=== PATIENT | female | born 1940 | race Caucasian/White ===

== ENCOUNTER 2017-02-27 04:47 | Inpatient (IN) | payer BC ==
[~2017-02-27] VITALS: Ht 162.6 cm; Wt 78.2 kg
[2017-02-27] MEDS ORDERED: SODIUM CHLORIDE 0.9% 1,000 ML IV ONE ×2 (05:01→06:41)
[2017-02-27 06:35] LABS: Urine Bacteria NONE SEEN /hpf (None Seen); Urine Blood Negative /uL (Negative); Urine Hyaline Cast FEW /lpf (0 - 2); Urine Mucus FEW (None Seen); Urine Specific Gravity 1.017 (1.001-1.035); Urine WBC 1 /hpf (0 - 5)
[2017-02-27] MEDS ORDERED: PROMETHAZINE HCL 25 MG/ML 1ML IV PRN ×2 (06:45→14:15)
[2017-02-27] MEDS ORDERED: MORPHINE SULFATE 10 MG/ML INJ 1ML SDV IV ONE (06:45)
[2017-02-27 06:48] LABS: Alcohol, Urine < 3.0 mg/dL (0-5); Amphetamine Screen, Urine NEGATIVE (NEGATIVE); Barbiturate Scree,Urine NEGATIVE (NEGATIVE); Benzodiazephine Screen, Urine NEGATIVE (NEGATIVE); Cannabinoid Screen, Urine POSITIVE (NEGATIVE); Cocaine Screen, Urine NEGATIVE (NEGATIVE); Opiate Scree,Urine POSITIVE (NEGATIVE); Phencyclidine Screen, Urine NEGATIVE (NEGATIVE)
[2017-02-27 10:13] LABS: Basophils # (auto) 0 uL; Basophils % (auto) 0.5 % (0.0-2.0); Eosinophils # (auto) 0 uL; Eosinophils % (auto) 0.4 % (0.0-7.0); Hematocrit 41.8 % (36.0-46.0); Hemoglobin 14.2 g/dL (12.2-16.2); Lymphocytes # (auto) 1.3 uL; Lymphocytes % (auto) 12.7 % (10.0-50.0); Mean Corpuscular Hemoglobin 31.8 pg (28.0-32.0); Mean Corpuscular Hgb Conc. 33.8 g/dL (32.0-36.0); Monocytes # (auto) 0.7 uL; Monocytes % (auto) 6.5 % (0.0-12.0); Neutrophils % (auto) 79.9 % (37.0-80.0); Nucleated Red Blood Cells % 0.1 %; Platelet Count (auto) 347 10^3/uL (140-450); Red Blood Cells 4.45 10^6/uL (4.0-5.20); Red Cell Distribution Width 13.7 % (11.8-14.3)
[2017-02-27 10:27] LABS: INR 0.95 (0.9-1.15); Partial Thromboplastin Time 26.1 sec (22.64-33.71); Prothrombin Time 10.4 sec (9.37-12.3)
[2017-02-27 10:37] LABS: Alanine Aminotransferase 42 U/L (13-56); Alkaline Phosphatase 75 U/L (45-117); Anion Gap 7 (5-15); Aspartate Aminotransferase 19 U/L (15-37); BUN/Creatinine Ratio 14.1; Bilirubin, Total 0.7 mg/dL (0.2-1.0); Blood Alcohol < 3.0 mg/dL (0-5); Blood Urea Nitrogen 10 mg/dL (7-18); Calcium 8.8 mg/dL (8.5-10.1); Carbon Dioxide 26 mmol/L (21-32); Chloride 103 mmol/L (98-107); GFR African American 102 mL/min; GFR Non-African American 85 mL/min; Glucose 100 mg/dL (74-106); Magnesium 2.2 mg/dL (1.6-2.6); Potassium 3.3 mmol/L (3.5-5.1); Sodium 136 mmol/L (136-145); Total Protein 6.9 g/dL (6.4-8.2)
[2017-02-27] MEDS ORDERED: LACTULOSE 20Gm/30ML SOLN PO PRN (14:15)
[2017-02-27] MEDS ORDERED: ACETAMINOPHEN 500 MG TAB PO PRN (14:15)
[2017-02-27] MEDS ORDERED: NITROGLYCERIN 0.4 MG SL TAB SL PRN (14:15)
[2017-02-27] MEDS ORDERED: TEMAZEPAM 15 MG CAP PO PRN (14:15)
[2017-02-27] MEDS ORDERED: MORPHINE SULFATE 10 MG/ML INJ 1ML SDV IV PRN (14:15)
[2017-02-27] MEDS ORDERED: LORazepam 0.5 MG TAB PO PRN (14:15)
[2017-02-27] MEDS ORDERED: IOHEXOL 350 MG/ML 100ML IJ ONE (14:17)
[2017-02-27] MEDS ORDERED: ENOXAPARIN SOD 40 MG/0.4 ML SYRINGE SC ONE (14:30)
[2017-02-27] MEDS ORDERED: ASPirin 81 mg TAB PO ONE (14:30)
[2017-02-27] MEDS ORDERED: PANTOPRAZOLE 40 MG TAB PO ONE (14:30)
[2017-02-27] MEDS: SOD CHL 0.9%/ KCL 20MEQ 1,000 ML IV SCH ×2 (16:38→17:38)
[2017-02-27 17:42] VITALS: BP 164/96
[2017-02-27 18:00] VITALS: BP 164/96
[2017-02-27 21:50] VITALS: BP 154/81
[2017-02-27] MEDS: ATORVASTATIN 20 MG TAB PO SCH (21:57)
[2017-02-27] MEDS: MORPHINE SULFATE 10 MG/ML INJ 1ML SDV IV PRN (21:57)
[2017-02-28] VITALS (7 sets, daily range): BP systolic 136–158; BP diastolic 78–98
[2017-02-28] MEDS ORDERED: cefTRIAXone 1GM/50ML D5W 50 ML IV SCH (09:00)
[2017-02-28] MEDS: PANTOPRAZOLE 40 MG TAB PO SCH (09:40)
[2017-02-28] MEDS: ENOXAPARIN SOD 40 MG/0.4 ML SYRINGE SC SCH (09:40)
[2017-02-28] MEDS ORDERED: ASPirin 81 mg TAB PO SCH (10:00)
[2017-02-28] MEDS ORDERED: AZITHROMYCIN 500MG/ 250ML 250 ML IV SCH (10:00)
[2017-02-28] MEDS ORDERED: ENOXAPARIN SOD 40 MG/0.4 ML SYRINGE SC SCH (10:00)
[2017-02-28] MEDS ORDERED: SOD CHL 0.9%/ KCL 20MEQ 1,000 ML IV SCH (15:30)
[2017-02-28] MEDS ORDERED: HALOPERIDOL LACTATE 5 MG/ML INJ VIAL IM PRN (18:45)
[2017-02-28] MEDS ORDERED: LORazepam 2MG/ML-1ML VIAL IV PRN (18:45)
[2017-02-28] MEDS: HYDROcodone-ACET 5/325MG TAB PO PRN (20:36)
[2017-02-28] MEDS: ATORVASTATIN 20 MG TAB PO SCH (21:04)
[2017-03-01 05:00] VITALS: BP 143/79
[2017-03-01] MEDS ORDERED: PRED1PAK8 PO (07:49)
[2017-03-01] MEDS ORDERED: FELO5TAB6 PO (07:49)
[2017-03-01] MEDS: ASPirin-EC 81 mg tab PO SCH (10:51)
[2017-03-01] MEDS: ENOXAPARIN SOD 40 MG/0.4 ML SYRINGE SC SCH (10:52)
[2017-03-01] MEDS: PANTOPRAZOLE 40 MG TAB PO SCH (10:52)
[2017-03-01] MEDS ORDERED: CYANOCOBALAMIN (B-12) 1000 MCG/1 ML VIAL IM ONE (13:15)
[2017-03-01] MEDS ORDERED: LORazepam 0.5 MG TAB PO PRN (14:30)
[2017-03-01 14:31] LABS: Folate (Folic Acid) 10.11 ng/mL (5.38-24)
[2017-03-01] MEDS: CYANOCOBALAMIN 500 MCG TAB PO SCH (14:45)
[2017-03-01 15:24] LABS: Basophils # (auto) 0.1 uL; Basophils % (auto) 0.8 % (0.0-2.0); Eosinophils # (auto) 0.1 uL; Eosinophils % (auto) 1.1 % (0.0-7.0); Hematocrit 38.7 % (36.0-46.0); Hemoglobin 13.1 g/dL (12.2-16.2); Lymphocytes # (auto) 1.3 uL; Lymphocytes % (auto) 13.4 % (10.0-50.0); Mean Corpuscular Hemoglobin 32.2 pg (28.0-32.0); Mean Corpuscular Hgb Conc. 33.8 g/dL (32.0-36.0); Mean Corpuscular Volume 95.2 fL (80.0-100.0); Monocytes # (auto) 0.6 uL; Monocytes % (auto) 6.5 % (0.0-12.0); Neutrophils # (auto) 7.5 uL; Neutrophils % (auto) 78.2 % (37.0-80.0); Platelet Count (auto) 322 10^3/uL (140-450); Red Blood Cells 4.06 10^6/uL (4.0-5.20); White Blood Cell 9.6 10^3/uL (4.4-10.8)
[2017-03-01 15:26] LABS: BUN/Creatinine Ratio 11.1; Calcium 8.8 mg/dL (8.5-10.1); Magnesium 2.2 mg/dL (1.6-2.6); Potassium 3.9 mmol/L (3.5-5.1)
[2017-03-01 15:41] LABS: INR 0.95 (0.9-1.15); Partial Thromboplastin Time 32.7 sec (22.64-33.71); Prothrombin Time 10.3 sec (9.37-12.3)
[2017-03-01 17:26] LABS: Folate (Folic Acid) 10.78 ng/mL (5.38-24)
[2017-03-01] MEDS ORDERED: MULTIPLE VITAMINS W/ MINERALS TAB PO ONE (18:00)
[2017-03-01] MEDS: MORPHINE SULFATE 10 MG/ML INJ 1ML SDV IV PRN (18:47)
[2017-03-01 20:00] VITALS: BP 129/73
[2017-03-01 22:00] VITALS: BP 129/73
[2017-03-01] MEDS: ATORVASTATIN 20 MG TAB PO SCH (22:36)
[2017-03-01] MEDS: ASCORBIC ACID 500 MG TAB PO SCH (22:36)
[2017-03-01] MEDS: HYDROcodone-ACET 5/325MG TAB PO PRN (22:36)
[2017-03-02 05:00] VITALS: BP 133/78
[2017-03-02] MEDS ORDERED: MULTIPLE VITAMINS W/ MINERALS TAB PO SCH (10:00)
[2017-03-02] MEDS: ASPirin-EC 81 mg tab PO SCH (10:33)
[2017-03-02] MEDS: PANTOPRAZOLE 40 MG TAB PO SCH (10:33)
[2017-03-02] MEDS: CYANOCOBALAMIN 500 MCG TAB PO SCH (10:34)
[2017-03-02] MEDS: ASCORBIC ACID 500 MG TAB PO SCH (10:34)
[2017-03-02] MEDS: ENOXAPARIN SOD 40 MG/0.4 ML SYRINGE SC SCH (10:34)
[2017-03-02] MEDS ORDERED: CYAN500T2 PO (12:18)
[2017-03-02] MEDS ORDERED: ATOR20TA50 PO (12:18)
[2017-03-02] MEDS ORDERED: ASP81EC PO (12:18)
== END 2017-03-02 16:40 | disposition hospice, home (50) | DRG 92 ==
LOC: ER 04:47 → EDBD 04:47 → TELE 04:48 → TELE-CENTR 17:24
PROVIDERS: ADMIT Internal Medicine; ATTEND Hospitalist
DX: G92 Toxic encephalopathy (principal); E44.0 Moderate protein-calorie malnutrition; E83.51 Hypocalcemia; M48.54XA Collapsed vertebra, not elsewhere classified, thoracic region, initial encounter for fracture; F03.90 Unspecified dementia, unspecified severity, without behavioral disturbance, psychotic disturbance, mood disturbance, and anxiety; F19.20 Other psychoactive substance dependence, uncomplicated; E53.8 Deficiency of other specified B group vitamins; K57.30 Diverticulosis of large intestine without perforation or abscess without bleeding; N81.4 Uterovaginal prolapse, unspecified; K76.0 Fatty (change of) liver, not elsewhere classified; Z79.82 Long term (current) use of aspirin; Z79.899 Other long term (current) drug therapy; Z86.73 Personal history of transient ischemic attack (TIA), and cerebral infarction without residual deficits; Z88.0 Allergy status to penicillin; Z91.030 Bee allergy status; Z91.011 Allergy to milk products; Z68.29 Body mass index [BMI] 29.0-29.9, adult
CPT/HCPCS: 36415; 51702; 70450; 71010; 71275; 74176; 80048; 80053; 80307; 80320; 81001; 82550; 82607; 82746; 83605; 83735; 84443; 84484; 85025; 85379; 85610; 85652; 85730; 87040; 92610; 93005; 93306; 93886; 94761; 95819; 96361; 96374; 96375; J0696

== ENCOUNTER 2017-03-30 21:07 | Inpatient (IN) | payer BC ==
[~2017-03-30] VITALS: Ht 162.6 cm; Wt 60.5 kg
[~2017-03-30 21:07] MED LIST: ASP81EC PO; ATOR20TA50 PO; CYAN500T2 PO
[2017-03-30 21:48] LABS: Urine Blood 1+ /uL (Negative); Urine Color Yellow (Yellow); Urine Glucose Normal (Normal); Urine Hyaline Cast MOD /lpf (0 - 2); Urine Ketone Negative (Negative); Urine Mucus MODERATE (None Seen); Urine Nitrite Negative (Negative); Urine RBC 12 /hpf (0 - 4); Urine Squamous Epithelial Cell FEW /hpf (<5)
[2017-03-30 21:49] LABS: Urine Bilirubin POSITIVE (Negative)
[2017-03-30 22:50] LABS: Basophils # (auto) 0.1 uL; Basophils % (auto) 0.6 % (0.0-2.0); Eosinophils # (auto) 0 uL; Eosinophils % (auto) 0.2 % (0.0-7.0); Hematocrit 52.9 % (36.0-46.0); Hemoglobin 17.1 g/dL (12.2-16.2); Lymphocytes # (auto) 1.3 uL; Mean Corpuscular Hemoglobin 31.9 pg (28.0-32.0); Mean Corpuscular Hgb Conc. 32.4 g/dL (32.0-36.0); Mean Corpuscular Volume 98.6 fL (80.0-100.0); Mean Platelet Volume 11.2 fL (6.9-10.8); Monocytes % (auto) 7.9 % (0.0-12.0); Neutrophils # (auto) 10.4 uL; Neutrophils % (auto) 81.3 % (37.0-80.0); Nucleated Red Blood Cells % 0.1 %; Platelet Count (auto) 305 10^3/uL (140-450); Red Cell Distribution Width 14.1 % (11.8-14.3); White Blood Cell 12.7 10^3/uL (4.4-10.8)
[2017-03-30 22:57] LABS: Salicylate < 1.7 mg/dL (2.8-20.0)
[2017-03-30] MEDS ORDERED: SODIUM CHLORIDE 0.9% 1,000 ML IV ONE (23:00)
[2017-03-30 23:08] LABS: INR 1.12 (0.9-1.15); Partial Thromboplastin Time 26.4 sec (22.64-33.71); Prothrombin Time 12.2 sec (9.37-12.3)
[2017-03-30 23:48] LABS: Acetaminophen < 2.0 ug/mL (10-30); Anion Gap 14 (5-15); Carbon Dioxide 19 mmol/L (21-32); Chloride 124 mmol/L (98-107); Lactic Acid w/Reflex 2.5 mmol/L (0.4-2.0); REFLEX LACTIC ACID YES OR NO YES; Sodium 157 mmol/L (136-145)
[2017-03-30 23:49] LABS: Albumin 3.2 g/dL (3.4-5.0); Alkaline Phosphatase 111 U/L (45-117); Aspartate Aminotransferase 72 U/L (15-37); Bilirubin, Total 0.9 mg/dL (0.2-1.0); GFR African American 28 mL/min; GFR Non-African American 23 mL/min; Glucose 154 mg/dL (74-106); Total Protein 7.5 g/dL (6.4-8.2)
[2017-03-31 00:02] LABS: BUN/Creatinine Ratio 40.4; Blood Urea Nitrogen 88 mg/dL (7-18)
[2017-03-31 02:04] LABS: Allen Test Yes; Base Excess -9.9 mmol/L (-2.0-2.0); Blood 02Sat 92.9 % (96-100); Blood COHb 0.1 % (0.5-1.5); Blood MetHb 0.3 % (0.0-1.5); HCO3 13.7 mmol/L (22-26.0); HHb 7.1 % (0.0-5.0); MODE ROOM AIR; O2Hb 92.5 % (94.0-97.0); PCO2 25.3 mmHg (35.0-45.0); PCO2(T) 25.3 mmHg (35.0-45.0); PO2 71.7 mmHg (80.0-100.0); PO2(T) 71.7 mmHg (80.0-100.0); Sample Type Arterial; pH 7.352 (7.350-7.450)
[2017-03-31] MEDS ORDERED: SODIUM CHLORIDE 0.9% 1,000 ML IV ONE (03:00)
[2017-03-31] MEDS ORDERED: MORPHINE SULF INJ 2 MG/ML SYRINGE 1ML IV PRN (06:30)
[2017-03-31] MEDS ORDERED: NITROGLYCERIN 0.4 MG SL TAB SL PRN (06:30)
[2017-03-31] MEDS ORDERED: AZITHROMYCIN 500MG/ 250ML 250 ML IV ONE (06:30)
[2017-03-31] MEDS ORDERED: ONDANSETRON HCL 4 MG/2 ML VIAL IV PRN (06:45)
[2017-03-31] MEDS ORDERED: DOXYCYCLINE HYC 100MG/250ML 250 ML IV SCH ×3 (07:15→11:00)
[2017-03-31 07:18] LABS: Basophils # (auto) 0 uL; Basophils % (auto) 0.4 % (0.0-2.0); Eosinophils # (auto) 0.1 uL; Eosinophils % (auto) 0.8 % (0.0-7.0); Hematocrit 45.8 % (36.0-46.0); Hemoglobin 14.6 g/dL (12.2-16.2); Lymphocytes # (auto) 1.2 uL; Lymphocytes % (auto) 10.2 % (10.0-50.0); Mean Corpuscular Hemoglobin 31.6 pg (28.0-32.0); Mean Corpuscular Hgb Conc. 31.9 g/dL (32.0-36.0); Mean Corpuscular Volume 99.2 fL (80.0-100.0); Mean Platelet Volume 10.7 fL (6.9-10.8); Monocytes # (auto) 0.8 uL; Monocytes % (auto) 6.5 % (0.0-12.0); Neutrophils # (auto) 9.6 uL; Neutrophils % (auto) 82.1 % (37.0-80.0); Nucleated Red Blood Cells % 0.1 %; Platelet Count (auto) 231 10^3/uL (140-450); Red Cell Distribution Width 14.2 % (11.8-14.3); White Blood Cell 11.6 10^3/uL (4.4-10.8)
[2017-03-31 07:38] LABS: BUN/Creatinine Ratio 56.7; Calcium 8.5 mg/dL (8.5-10.1); Potassium 3.8 mmol/L (3.5-5.1)
[2017-03-31] MEDS ORDERED: cefTRIAXone 1GM/10ml IVPUSH 10 ML IV SCH (10:00)
[2017-03-31] MEDS: D5W 5% 1,000 ML IV SCH ×2 (11:15→18:23)
[2017-03-31] MEDS ORDERED: LEVOFLOXACIN 250MG 50 ML IV SCH (11:30)
[2017-03-31 13:00] VITALS: BP 148/88
[2017-03-31] MEDS: LEVOFLOXACIN 250MG 50 ML IV SCH (14:41)
[2017-03-31 15:27] LABS: BUN/Creatinine Ratio 47.4; Calcium 8.8 mg/dL (8.5-10.1); Potassium 3.3 mmol/L (3.5-5.1)
[2017-03-31 16:00] VITALS: BP 129/82
[2017-03-31] MEDS ORDERED: POTASSIUM CHLORIDE 40 MEQ, LIDOCAINE 1% (LOCAL ANESTH.) 4 ML in SODIUM CHL 0.9% 250 ML IV ONE (17:15)
[2017-03-31 19:31] LABS: Calcium 8.7 mg/dL (8.5-10.1); Potassium 3.8 mmol/L (3.5-5.1)
[2017-03-31 19:51] VITALS: BP 110/72
[2017-03-31 22:43] LABS: BUN/Creatinine Ratio 45.8; Calcium 8.6 mg/dL (8.5-10.1); Potassium 4.4 mmol/L (3.5-5.1)
[2017-04-01] VITALS: BP 127/75
[2017-04-01 03:46] LABS: Potassium 3.6 mmol/L (3.5-5.1)
[2017-04-01 03:48] LABS: BUN/Creatinine Ratio 45.7
[2017-04-01 04:00] VITALS: BP 121/78
[2017-04-01 05:36] LABS: Basophils # (auto) 0 uL; Basophils % (auto) 0.3 % (0.0-2.0); Eosinophils # (auto) 0.6 uL; Eosinophils % (auto) 5.2 % (0.0-7.0); Hemoglobin 13.4 g/dL (12.2-16.2); Lymphocytes # (auto) 1.2 uL; Lymphocytes % (auto) 11.2 % (10.0-50.0); Mean Corpuscular Hemoglobin 31.7 pg (28.0-32.0); Mean Corpuscular Hgb Conc. 32.7 g/dL (32.0-36.0); Mean Corpuscular Volume 97.2 fL (80.0-100.0); Mean Platelet Volume 10.1 fL (6.9-10.8); Monocytes # (auto) 0.7 uL; Monocytes % (auto) 6.7 % (0.0-12.0); Neutrophils # (auto) 8.5 uL; Neutrophils % (auto) 76.6 % (37.0-80.0); Platelet Count (auto) 145 10^3/uL (140-450); Red Cell Distribution Width 13.7 % (11.8-14.3); White Blood Cell 11.1 10^3/uL (4.4-10.8)
[2017-04-01 06:04] LABS: BUN/Creatinine Ratio 46.2; Calcium 8.7 mg/dL (8.5-10.1); Potassium 3.4 mmol/L (3.5-5.1)
[2017-04-01 08:00] VITALS: BP 139/76
[2017-04-01] MEDS: LEVOFLOXACIN 250MG 50 ML IV SCH (09:48)
[2017-04-01] MEDS: D5W/SOD CHL 0.45%/KCL 20MEQ 1,000 ML IV SCH ×2 (09:57→22:30)
[2017-04-01] MEDS ORDERED: FLUCONAZOLE 100 MG TAB PO SCH (10:00)
[2017-04-01 10:43] LABS: B-Type Natriuretic Peptide 59.81 pg/mL (0-100); Temperature: 23.3 C (20.0-25.0)
[2017-04-01 11:29] LABS: BUN/Creatinine Ratio 40.7; Calcium 8.8 mg/dL (8.5-10.1); Potassium 3.3 mmol/L (3.5-5.1)
[2017-04-01 11:50] VITALS: BP 129/86
[2017-04-01] MEDS: ENOXAPARIN SOD 60 MG/0.6 ML SYRINGE SC SCH ×2 (14:57→22:29)
[2017-04-01 15:52] VITALS: BP 110/65
[2017-04-01] MEDS: FLUCONAZOLE 100MG/50ML 50 ML IV SCH (18:00)
[2017-04-01 20:00] VITALS: BP 116/68
[2017-04-02] VITALS: BP 113/71
[2017-04-02 05:19] LABS: Basophils # (auto) 0 uL; Basophils % (auto) 0.3 % (0.0-2.0); Eosinophils # (auto) 0.6 uL; Eosinophils % (auto) 6.2 % (0.0-7.0); Hematocrit 40.6 % (36.0-46.0); Hemoglobin 13.1 g/dL (12.2-16.2); Lymphocytes # (auto) 1.3 uL; Lymphocytes % (auto) 13.4 % (10.0-50.0); Mean Corpuscular Hemoglobin 31.9 pg (28.0-32.0); Mean Corpuscular Hgb Conc. 32.3 g/dL (32.0-36.0); Mean Corpuscular Volume 98.8 fL (80.0-100.0); Mean Platelet Volume 10.7 fL (6.9-10.8); Monocytes # (auto) 0.8 uL; Neutrophils # (auto) 7.1 uL; Neutrophils % (auto) 72.1 % (37.0-80.0); Nucleated Red Blood Cells % 0.1 %; Platelet Count (auto) 127 10^3/uL (140-450); Red Cell Distribution Width 13.7 % (11.8-14.3); White Blood Cell 9.9 10^3/uL (4.4-10.8)
[2017-04-02 05:49] LABS: Albumin 2.2 g/dL (3.4-5.0); BUN/Creatinine Ratio 28.2; Bilirubin, Total 0.5 mg/dL (0.2-1.0); Calcium 8.5 mg/dL (8.5-10.1); Magnesium 2.2 mg/dL (1.6-2.6); Phosphorus 2.4 mg/dL (2.5-4.90); Total Protein 5.4 g/dL (6.4-8.2)
[2017-04-02 08:00] VITALS: BP 141/83
[2017-04-02] MEDS: LEVOFLOXACIN 250MG 50 ML IV SCH (10:29)
[2017-04-02] MEDS: ENOXAPARIN SOD 60 MG/0.6 ML SYRINGE SC SCH ×2 (10:29→21:48)
[2017-04-02] MEDS: FLUCONAZOLE 100MG/50ML 50 ML IV SCH (11:30)
[2017-04-02] MEDS ORDERED: POTASSIUM PHOSPHATE 22 MEQ in SODIUM CHL 0.9% 100 ML IV ONE (12:30)
[2017-04-02] MEDS: POTASSIUM CHLORIDE IV SCH (14:36)
[2017-04-02] MEDS: D5W IV SCH (14:36)
[2017-04-02] MEDS: SODIUM BICARBONATE IV SCH (14:36)
[2017-04-02 14:57] VITALS: BP 120/77
[2017-04-02] MEDS ORDERED: CYANOCOBALAMIN (B-12) 1000 MCG/1 ML VIAL IM ONE (16:00)
[2017-04-02] MEDS ORDERED: HALOPERIDOL LACTATE 5 MG/ML INJ VIAL IM PRN (16:00)
[2017-04-02 16:30] VITALS: BP 128/76
[2017-04-02 16:45] VITALS: BP 128/76
[2017-04-02 20:00] VITALS: BP 126/95
[2017-04-03 00:07] VITALS: BP 136/78
[2017-04-03] MEDS: POTASSIUM CHLORIDE IV SCH ×2 (01:45→14:17)
[2017-04-03] MEDS: D5W IV SCH ×2 (01:45→14:17)
[2017-04-03] MEDS: SODIUM BICARBONATE IV SCH ×2 (01:45→14:17)
[2017-04-03 04:00] VITALS: BP 134/87
[2017-04-03 08:00] VITALS: BP 145/88
[2017-04-03 09:23] LABS: Hematocrit 40.4 % (36.0-46.0); Hemoglobin 13.5 g/dL (12.2-16.2); Mean Corpuscular Hemoglobin 31.6 pg (28.0-32.0); Mean Corpuscular Hgb Conc. 33.5 g/dL (32.0-36.0); Mean Corpuscular Volume 94.3 fL (80.0-100.0); Mean Platelet Volume 11.1 fL (6.9-10.8); Platelet Count (auto) 200 10^3/uL (140-450); Red Cell Distribution Width 13.2 % (11.8-14.3); White Blood Cell 12.3 10^3/uL (4.4-10.8)
[2017-04-03 09:29] LABS: Metamyelocytes % 0; Myelocytes % 0; Promyelocytes % 0; Reactive Lymphocytes 0
[2017-04-03 09:43] LABS: Platelet Estimate Adequate; RBC Morphology Normal
[2017-04-03 09:50] LABS: Albumin 2.5 g/dL (3.4-5.0); BUN/Creatinine Ratio 16.7; Bilirubin, Total 0.7 mg/dL (0.2-1.0); Calcium 8.6 mg/dL (8.5-10.1); Magnesium 1.9 mg/dL (1.6-2.6); Phosphorus 2.6 mg/dL (2.5-4.90); Potassium 3.6 mmol/L (3.5-5.1); Total Protein 6.2 g/dL (6.4-8.2)
[2017-04-03] MEDS: LEVOFLOXACIN 250MG 50 ML IV SCH (10:00)
[2017-04-03] MEDS: ENOXAPARIN SOD 60 MG/0.6 ML SYRINGE SC SCH ×2 (10:00→21:40)
[2017-04-03] MEDS: FLUCONAZOLE 100MG/50ML 50 ML IV SCH (10:00)
[2017-04-03] MEDS: CYANOCOBALAMIN 500 MCG TAB PO SCH (10:00)
[2017-04-03 11:45] LABS: INR 1.07 (0.9-1.15); Prothrombin Time 11.7 sec (9.37-12.3)
[2017-04-03 12:00] VITALS: BP 142/80
[2017-04-03 16:00] VITALS: BP 117/73
[2017-04-03 20:00] VITALS: BP 120/80
[2017-04-04] VITALS: BP 97/69
[2017-04-04] MEDS: POTASSIUM CHLORIDE IV SCH ×2 (00:21→15:00)
[2017-04-04] MEDS: SODIUM BICARBONATE IV SCH ×2 (00:21→15:00)
[2017-04-04] MEDS: D5W IV SCH ×2 (00:21→15:00)
[2017-04-04 04:00] VITALS: BP 117/72
[2017-04-04 05:46] LABS: Hematocrit 38.3 % (36.0-46.0); Hemoglobin 12.6 g/dL (12.2-16.2); Mean Corpuscular Hemoglobin 31.4 pg (28.0-32.0); Mean Platelet Volume 11.4 fL (6.9-10.8); Platelet Count (auto) 162 10^3/uL (140-450); Red Cell Distribution Width 13.7 % (11.8-14.3); White Blood Cell 8.5 10^3/uL (4.4-10.8)
[2017-04-04 06:07] LABS: Metamyelocytes % 0; Promyelocytes % 0; Reactive Lymphocytes 0
[2017-04-04 06:19] LABS: Albumin 2.1 g/dL (3.4-5.0); BUN/Creatinine Ratio 13.9; Bilirubin, Total 0.4 mg/dL (0.2-1.0); Calcium 8.3 mg/dL (8.5-10.1); Magnesium 1.8 mg/dL (1.6-2.6); Phosphorus 2.7 mg/dL (2.5-4.90); Total Protein 5.5 g/dL (6.4-8.2)
[2017-04-04 06:45] LABS: Myelocytes % 2; Platelet Estimate Adequate
[2017-04-04 06:46] LABS: RBC Morphology Normal
[2017-04-04 08:00] VITALS: BP 115/74
[2017-04-04] MEDS: LEVOFLOXACIN 250MG 50 ML IV SCH (09:53)
[2017-04-04] MEDS: ENOXAPARIN SOD 60 MG/0.6 ML SYRINGE SC SCH (09:53)
[2017-04-04] MEDS: CYANOCOBALAMIN 500 MCG TAB PO SCH (09:54)
[2017-04-04] MEDS: FLUCONAZOLE 100MG/50ML 50 ML IV SCH (10:00)
[2017-04-04 11:53] VITALS: BP 122/76
[2017-04-04 16:00] VITALS: BP 129/76
[2017-04-04 20:00] VITALS: BP 118/68
[2017-04-04] MEDS: APIXABAN 2.5 MG TAB PO SCH (22:07)
[2017-04-05] VITALS: BP 124/70
[2017-04-05 04:00] VITALS: BP 134/58
[2017-04-05] MEDS: D5W IV SCH ×2 (07:30→21:53)
[2017-04-05] MEDS: POTASSIUM CHLORIDE IV SCH ×2 (07:30→21:53)
[2017-04-05] MEDS: SODIUM BICARBONATE IV SCH ×2 (07:30→21:53)
[2017-04-05] MEDS: ACETAMINOPHEN 500 MG TAB PO PRN (07:51)
[2017-04-05 08:00] VITALS: BP 156/85
[2017-04-05] MEDS: LEVOFLOXACIN 250MG 50 ML IV SCH (09:23)
[2017-04-05] MEDS: FLUCONAZOLE 100MG/50ML 50 ML IV SCH (10:30)
[2017-04-05] MEDS: CYANOCOBALAMIN 500 MCG TAB PO SCH (10:59)
[2017-04-05] MEDS: APIXABAN 2.5 MG TAB PO SCH ×2 (11:00→21:54)
[2017-04-05 12:00] VITALS: BP 129/77
[2017-04-05 16:00] VITALS: BP 127/69
[2017-04-05 20:00] VITALS: BP 114/72
[2017-04-06] VITALS: BP 127/85
[2017-04-06 04:00] VITALS: BP 127/85
[2017-04-06] MEDS: LEVOFLOXACIN 250MG 50 ML IV SCH (10:35)
[2017-04-06] MEDS: APIXABAN 2.5 MG TAB PO SCH ×2 (10:35→21:32)
[2017-04-06] MEDS: CYANOCOBALAMIN 500 MCG TAB PO SCH (10:36)
[2017-04-06 11:50] VITALS: BP 121/76
[2017-04-06] MEDS: FLUCONAZOLE 100MG/50ML 50 ML IV SCH (11:58)
[2017-04-06] MEDS: PRO-STAT 64 30ML PO SCH ×2 (12:00→18:00)
[2017-04-06] MEDS: POTASSIUM CHLORIDE IV SCH (12:45)
[2017-04-06] MEDS: SODIUM BICARBONATE IV SCH (12:45)
[2017-04-06] MEDS: D5W IV SCH (12:45)
[2017-04-06 15:50] VITALS: BP 123/71
[2017-04-06 19:59] VITALS: BP 135/75
[2017-04-07] VITALS: BP 153/92
[2017-04-07] MEDS: POTASSIUM CHLORIDE IV SCH ×3 (04:20→17:40)
[2017-04-07] MEDS: SODIUM BICARBONATE IV SCH ×3 (04:20→17:40)
[2017-04-07] MEDS: D5W IV SCH ×3 (04:20→17:40)
[2017-04-07 04:21] VITALS: BP 164/95
[2017-04-07 08:00] VITALS: BP 166/88
[2017-04-07] MEDS: PRO-STAT 64 30ML PO SCH ×2 (08:00→18:00)
[2017-04-07] MEDS: LEVOFLOXACIN 250MG 50 ML IV SCH (09:32)
[2017-04-07] MEDS: APIXABAN 2.5 MG TAB PO SCH ×2 (09:32→21:43)
[2017-04-07] MEDS: CYANOCOBALAMIN 500 MCG TAB PO SCH (09:32)
[2017-04-07] MEDS: FLUCONAZOLE 100MG/50ML 50 ML IV SCH (11:00)
[2017-04-07 11:50] VITALS: BP 151/83
[2017-04-07] MEDS: ACETAMINOPHEN 500 MG TAB PO PRN ×2 (12:19→20:32)
[2017-04-07 15:53] VITALS: BP 123/73
[2017-04-07 19:50] VITALS: BP 118/61
[2017-04-08] VITALS: BP 121/72
[2017-04-08 04:00] VITALS: BP 113/71
[2017-04-08] MEDS: POTASSIUM CHLORIDE IV SCH (06:51)
[2017-04-08] MEDS: SODIUM BICARBONATE IV SCH (06:51)
[2017-04-08] MEDS: D5W IV SCH (06:51)
[2017-04-08] MEDS: PRO-STAT 64 30ML PO SCH ×2 (08:00→18:54)
[2017-04-08 08:26] VITALS: BP 125/88
[2017-04-08] MEDS: CYANOCOBALAMIN 500 MCG TAB PO SCH (09:06)
[2017-04-08] MEDS: LEVOFLOXACIN 250MG 50 ML IV SCH (09:06)
[2017-04-08] MEDS: APIXABAN 2.5 MG TAB PO SCH ×2 (09:06→21:59)
[2017-04-08] MEDS: FLUCONAZOLE 100MG/50ML 50 ML IV SCH (10:30)
[2017-04-08 12:00] VITALS: BP 134/74
[2017-04-08 16:00] VITALS: BP 149/74
[2017-04-08 20:00] VITALS: BP 150/86
[2017-04-09] VITALS: BP 144/71
[2017-04-09 04:21] VITALS: BP 152/76
[2017-04-09 05:56] LABS: Potassium 3.9 mmol/L (3.5-5.1)
[2017-04-09 06:06] LABS: Albumin 2.2 g/dL (3.4-5.0); BUN/Creatinine Ratio 21.9; Bilirubin, Total 0.5 mg/dL (0.2-1.0); Calcium 9.2 mg/dL (8.5-10.1)
[2017-04-09 07:30] VITALS: BP 138/79
[2017-04-09] MEDS: PRO-STAT 64 30ML PO SCH ×2 (08:27→18:00)
[2017-04-09] MEDS ORDERED: FLUCONAZOLE 200 MG/100 ML IV ONE (10:34)
[2017-04-09] MEDS: LEVOFLOXACIN 250MG 50 ML IV SCH (10:41)
[2017-04-09] MEDS: APIXABAN 2.5 MG TAB PO SCH ×2 (10:41→22:30)
[2017-04-09] MEDS: CYANOCOBALAMIN 500 MCG TAB PO SCH (10:41)
[2017-04-09] MEDS: FLUCONAZOLE 100MG/50ML 50 ML IV SCH (10:43)
[2017-04-09 12:00] VITALS: BP 147/90
[2017-04-09 15:57] VITALS: BP 142/71
[2017-04-09 20:00] VITALS: BP 125/75
[2017-04-10] VITALS: BP 152/92
[2017-04-10] MEDS: ACETAMINOPHEN 500 MG TAB PO PRN (02:34)
[2017-04-10 04:20] VITALS: BP 168/87
[2017-04-10 08:00] VITALS: BP 112/60
[2017-04-10] MEDS: PRO-STAT 64 30ML PO SCH (08:00)
[2017-04-10] MEDS ORDERED: FLUCONAZOLE 200 MG/100 ML IV ONE (09:57)
[2017-04-10] MEDS: LEVOFLOXACIN 250MG 50 ML IV SCH (10:10)
[2017-04-10] MEDS: FLUCONAZOLE 100MG/50ML 50 ML IV SCH (10:10)
[2017-04-10] MEDS: CYANOCOBALAMIN 500 MCG TAB PO SCH (10:11)
[2017-04-10] MEDS: APIXABAN 2.5 MG TAB PO SCH (10:11)
[2017-04-10 10:50] VITALS: BP 112/60
[2017-04-10 11:35] VITALS: BP 130/74
== END 2017-04-10 13:29 | disposition hospice, home (50) | DRG 871 ==
LOC: ER 21:07 → TELE 21:08 → DOU IN ICU 03-31 13:07
PROVIDERS: ADMIT Nurse Practitioner Family; ATTEND Internal Medicine
DX: A41.9 Sepsis, unspecified organism (principal); N17.0 Acute kidney failure with tubular necrosis; G92 Toxic encephalopathy; E87.0 Hyperosmolality and hypernatremia; J18.9 Pneumonia, unspecified organism; E87.2 Acidosis; I82.403 Acute embolism and thrombosis of unspecified deep veins of lower extremity, bilateral; E86.0 Dehydration; N39.0 Urinary tract infection, site not specified; E87.1 Hypo-osmolality and hyponatremia; G30.9 Alzheimer's disease, unspecified; F02.80 Dementia in other diseases classified elsewhere, unspecified severity, without behavioral disturbance, psychotic disturbance, mood disturbance, and anxiety; R79.1 Abnormal coagulation profile; E87.6 Hypokalemia; E53.8 Deficiency of other specified B group vitamins; Z90.49 Acquired absence of other specified parts of digestive tract; Z88.0 Allergy status to penicillin; Z74.01 Bed confinement status; Z86.73 Personal history of transient ischemic attack (TIA), and cerebral infarction without residual deficits
CPT/HCPCS: 36415; 36600; 70450; 71010; 76775; 78582; 80048; 80053; 80307; 80320; 80329; 81001; 82570; 82805; 82962; 83036; 83605; 83735; 83880; 83935; 84100; 84156; 84300; 84484; 85007; 85025; 85027; 85379; 85610; 85730; 86803; 87040; 87081; 87086; 87340; 93005; 93970; 95819; 96361; 96365; J1450; J2001; J3490